=== PATIENT | female | born 2000 | race African-American/Black ===

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

== ENCOUNTER 2023-06-21 16:26 | Emergency (ER) | payer OTHER ==
[~2023-06-21] VITALS: Ht 165.1 cm; Wt 90.7 kg
[2023-06-21 17:33] LABS: HEMATOCRIT 34.2 % (36.0-45.00); HEMOGLOBIN 11.3 g/dL (12.0-15.00); MEAN CELL VOLUME 86.1 fL (80.00-100.00); MEAN CORPUSCULAR HEMOGLOBIN 28.5 pg (27.00-32.0); MEAN CORPUSCULAR HGB CONC 33.1 g/dl (32.0-36.0); PLATELET COUNT 179 K/uL (150-450); RED BLOOD COUNT 3.97 M/uL (4.00-6.00); RED CELL DISTRIBUTION WIDTH 14.9 % (11.5-14.5)
[2023-06-21] MEDS ORDERED: ONDANSETRON ODT8 MG PO (20:40)
[2023-06-21] MEDS ORDERED: PRENATAL + DHA1 EAC1 PO (20:40)
== END 2023-06-21 21:01 | disposition home or self-care (01) ==
LOC: ER 16:26
PROVIDERS: General Practice
DX: O20.8 Other hemorrhage in early pregnancy (principal); Z3A.01 Less than 8 weeks gestation of pregnancy; R10.2 Pelvic and perineal pain